=== PATIENT | male | born 1975 | race Caucasian/White ===

== ENCOUNTER 2023-08-17 18:37 | Emergency (ER) | payer BC ==
[2023-08-17] MEDS ORDERED: FAMOTIDINE 20 MG/50 ML IVPB 20 MG/50 ML MG IVPB ONE ×2 (18:47→18:50)
[2023-08-17] MEDS ORDERED: methylPREDNISolone NA SUCC 125 MG/2 ML VIAL IVPUSH ONE (18:48)
[2023-08-17] MEDS ORDERED: methylPREDNISolone NA SUCC 125 MG/2 ML VIAL ONE (18:50)
[2023-08-17 19:06] VITALS: RESP 16; BMI 27.2
[2023-08-17 22:04] VITALS: BP 110/74; PULSE 66; TEMP 98.9
== END 2023-08-17 22:40 | disposition home or self-care (01) ==
LOC: FER 18:37
DX: T63.441A Toxic effect of venom of bees, accidental (unintentional), initial encounter (principal); L29.9 Pruritus, unspecified; R21 Rash and other nonspecific skin eruption; R22.0 Localized swelling, mass and lump, head
CPT/HCPCS: 99283-25

== ENCOUNTER 2024-10-14 03:24 | Emergency (ER) | payer BC ==
[2024-10-14 03:42] VITALS: BP 113/84; PULSE 64; RESP 18; TEMP 97.2; BMI 26.5
== END 2024-10-14 08:10 | disposition home or self-care (01) ==
LOC: FER 03:24
DX: F10.929 Alcohol use, unspecified with intoxication, unspecified (principal); M50.30 Other cervical disc degeneration, unspecified cervical region; T33.90XA Superficial frostbite of unspecified sites, initial encounter; Y90.9 Presence of alcohol in blood, level not specified
CPT/HCPCS: 70450-TC; 72125-TC; 99284-25